=== PATIENT | female | born 1955 | race Caucasian/White ===

== ENCOUNTER 2019-07-14 12:07 | Outpatient (CLI) | payer MEDICARE, OTHER, SELFPAY ==
[2019-07-14 12:50] LABS: Alanine Aminotransferase 27 U/L (0-33); Albumin Level 4.7 g/dL (3.5-5.2); Alkaline Phosphatase 83 IU/L (35-105); Anion Gap 17.3 (5-19); Blood Urea Nitrogen 15 mg/dL (8-23); Carbon Dioxide 25 mmol/L (22-29); Chloride 102 mmol/L (98-107); Globulin 2.2 g/dL (1.3-4.6); Glomerular Filtration Rate 83.7 mL/min (90-130); Glucose 105 mg/dL (74-106); Potassium 4.3 mmol/L (3.5-5.1); Sodium 140 mmol/L (136-145); Total Bilirubin 0.3 mg/dL (0.15-1.2); Total Protein 6.9 g/dL (6.6-8.7)
[2019-07-14 13:18] LABS: Aspartate Amino Transferase 28 U/L (0-32)
--- NOTE | 2019-07-14 14:19 | ONC FU_ITS ---
Dr. De Los Santos follow up note Patient: Frieda Lockhart Unit #: [id number]: 1955 Dicatated By: Norm De Los Santos M.D.Date of Visit:Jul 14, 2019 Onc Med Follow-up/Prog Note History of Present Illness: Mrs. Frieda Lockhart, is a 64-year-old female with history of left breast cancer, as per patient initially in fall she observed mass in her left breast, at that time she decided to pursue alternative therapy, and deferred biopsy and mammogram until November 2017 when she moved to [place], [place] with her sister, and there she was evaluated by Dr. Flynn Herrmann, medical oncologist and workup done there confirmed 6 cm left breast mass with skin involvement, biopsy was done on 01/05/2018 which showed high-grade, triple negative, invasive ductal carcinoma with dermal invasion, chest x-ray showed left axillary lymphadenopathy and clinically it was concluded, T4, N2 M0 left breast carcinoma Patient was started on neoadjuvant chemotherapy with Adriamycin Cytoxan ???4 followed by weekly Taxol ???11, patient developed [id number] neuropathy so her chemotherapy concluded on 06/01/2018 and a month later on 07/05/2018 she underwent bilateral mastectomy as well as left axillary node dissection and final pathology report showed almost complete response to the chemotherapy, there was no residual disease in the breast specimen, there were only 3 malignant cells noted in one of the 5 axillary lymph nodes examined So no adjuvant chemotherapy with Xeloda was considered And follow-up every 2-3 months in first 2 years and then every 6 month from 2-5 years was planned And then patient was referred to post mastectomy radiation therapy which was started on 08/09/2018 and completed on 09/17/2018 and patient received total 5000 cGy in 25 fractions and bolus was utilized on alternative days. And also received radiation to the left axilla Now patient moved back to [facility]. Came for follow-up, denies any specific complaints except some restricted movement at left shoulder but with exercise it is improving. No fever or chills no nausea or vomiting no diarrhea constipation no new bony pains. No headaches no blurred vision or double vision. Appetite is good. Medications: Calcium 1 Capsule Oral daily, Elderberry 1 drop(s) Liquid Oral daily, Magnesium 1 Capsule Oral daily, magnolia bark 0.5 tsp Powder daily, pauD-arco 1 drop(s) Liquid daily, Vitamin A 1 Tablet Oral daily, Vitamin B Complex 1 Tablet Oral daily, Vitamin C 1 Capsule Oral daily, Vitamin D 1 Tablet Oral daily Allergies: Sulfamylon Review of Systems: Constitutional - Appetite is good and weight is stable. No fever, chills, hot flashes, or night sweats. Energy level is good, ENMT - Positive for sinus congestion/drainage. No mouth sores. No sore throat, occasional difficulty swallowing, Hematologic/Lymphatic - No abnormal bruising or bleeding, Respiratory - No shortness of breath. Slight cough. No pleuritic pain or hemoptysis, Cardiovascular - No angina pain. No palpitations, Gastrointestinal - No nausea or vomiting. No heartburn or acid reflux. Regular diarrhea, no constipation. No blood in the stool or black stools, Genitourinary (F) - No dysuria or hematuria. No urinary frequency. No urgency or incontinence, Musculoskeletal - No joint or bone pain, Neurologic - No headache or dizziness. Pt reports peripheral neuropathy in toes, Psychiatric - No anxiety or depression. No insomnia. Vital Signs: Performed on Jul 14, 2019 13:42 Height - 66.00 in Weight - 127.4 lbs (HIGH) BSA - 1.65 sq.m BMI - 20.56 Temperature - 98.2 F (LOW) Pulse - 103 /min (HIGH) Respiration - 16 /min BP - 110/61 mm(hg) O2 Sat - 99 % Pain - 2 Performance Status: 0 - Fully active, able to carry on all predisease activities without restrictions. (ECOG) Physical Examination: Respiratory - Lungs are clear to auscultation without rhonchi or wheezing, Cardiovascular - Regular rate and rhythm of heart, Extremities - no edema. Lab/Imaging: Test performed on Jan 20, 2019 15:09 Sodium 143 mmol/L Potassium 3.6 mmol/L Chloride 106 mmol/L CO2 25 mmol/L Anion Gap 15.6 BUN 15 mg/dL Creatinine 0.6 mg/dL Cr Clearance (Est) 77.80 mL/min eGFR 100.0 mL/min Glucose 123 mg/dl Calcium 9.2 mg/dL Protein, Total 7.0 g/dL Albumin 4.4 g/dL Globulin 2.6 gm/dL Bilirubin, Total 0.2 mg/dL ALT (SGPT) 22 U/L AST (SGOT) 27 U/L Alkaline Phosphatase 73 IU/L WBC 6.0 /cmm RBC 4.02 10 6/cmm HGB 12.4 g/dl HCT 36.2 % MCV 89.9 /cmm MCH 30.9 pg MCHC 34.4 g/dl RDW 14.3 % Platelet Count 219 10 3/cmm MPV 7.5 fl Neutrophils 4.3 10 3/cmm Lymphocytes 1.2 10 3/cmm Monocytes 0.4 10 3/cmm Eosinophils 0.1 10 3/cmm Basophils 0.0 10 3/cmm Neutrophil % 70.9 % Lymphocyte % 20.4 % Monocyte % 6.1 % Eosinophil % 2.0 % Basophils % 0.6 % CA 27.29 22.53 U/mL Impression: High-grade, triple negative, invasive ductal carcinoma with dermal invasion involving left breast per biopsy done on 11/05/2017, status post neoadjuvant chemotherapy with Adriamycin Cytoxan ???4 followed by weekly Taxol ???11 and chemotherapy was concluded on 06/01/2018, Followed by bilateral mastectomy with a left axillary lymph node dissection done on 07/05/2018 final pathology report showed almost complete response except only 3 malignant cell noted in one of the 5 axillary lymph nodes examined. Followed by radiation therapy to the left chest wall and axilla from 08/09/2018 through 09/17/2018 Mild peripheral neuropathy, now improving As per patient, no adjuvant treatment was offered rather follow-up every 2- 3 months in first 2 years then every 6 months from 2-5 years. Plan: Discussed with patient regarding her labs CMP is within normal limits Clinically, patient is doing well with no signs symptom suggestive of recurrence of disease. We'll continue to monitor and then she will return to clinic in 6 month with CMP. Signed By: Norm De Los Santos M.D. <<Signature on File>>
== END 2019-07-14 12:08 | disposition home or self-care (01) ==
LOC: ONCMED 12:13
PROVIDERS: Family Provider Nurse Practitioner Family; PCP Nurse Practitioner Family; Visit Provider Internal Medicine Hematology & Oncology
DX: Z08 Encounter for follow-up examination after completed treatment for malignant neoplasm (principal); Z85.3 Personal history of malignant neoplasm of breast; G62.9 Polyneuropathy, unspecified; Z17.1 Estrogen receptor negative status [ER-]; Z90.13 Acquired absence of bilateral breasts and nipples; Z92.21 Personal history of antineoplastic chemotherapy; Z92.3 Personal history of irradiation
CPT/HCPCS: 36415; 80053; G0463

== ENCOUNTER → 2019-10-18 13:00 | Outpatient (BNVA) | payer MEDICARE, OTHER, SELFPAY | PROVIDERS: Family Provider Nurse Practitioner Family; PCP Nurse Practitioner Family; Visit Provider Nurse Practitioner Family | DX: R53.82 Chronic fatigue, unspecified (principal); E55.9 Vitamin D deficiency, unspecified; H65.191 Other acute nonsuppurative otitis media, right ear | CPT/HCPCS: 80053; 82306; 85025 ==

== ENCOUNTER 2019-11-30 10:24 | Outpatient (CLI) | payer MEDICARE, OTHER, SELFPAY ==
[2019-11-30 11:40] LABS: Basophils # 0.1 10^3/uL (0.0-0.1); Basophils % 0.8 %; Eosinophils # 0.2 10^3/uL (0.0-0.8); Eosinophils % 2.6 %; Hematocrit 40.9 % (37.0-47.0); Lymphocytes # 1.3 10^3/uL (0.8-4.8); Lymphocytes % 20.5 %; Mean Corpuscular HGB Conc 31.8 g/dL (30.0-36.0); Mean Corpuscular Hemoglobin 29.5 pg (28.0-34.0); Mean Corpuscular Volume 92.7 fL (81-99); Mean Platelet Volume 9.5 fL (7.4-10.4); Monocytes # 0.5 10^3/uL (0.2-0.9); Monocytes % 6.9 %; Neutrophils # 4.5 10^3/uL (1.8-7.7); Nucleated Red Blood Cells % 0 %; Platelet Count 280 10^3/cmm (130-400); Red Blood Count 4.41 10^6/uL (4.1-5.3); Red Cell Distribution Width 12.3 % (12.1-15.1); White Blood Count 6.5 10^3/uL (4.0-10.0)
[2019-11-30 11:51] LABS: Alanine Aminotransferase 64 U/L (0-33); Albumin Level 4.8 g/dL (3.5-5.2); Alkaline Phosphatase 189 IU/L (35-105); Anion Gap 16.8 (5-19); Aspartate Amino Transferase 61 U/L (0-32); Blood Urea Nitrogen 17 mg/dL (8-23); Calcium 9.9 mg/dL (8.5-10.5); Carbon Dioxide 28 mmol/L (22-29); Chloride 97 mmol/L (98-107); Glomerular Filtration Rate 83.7 mL/min (90-130); Glucose 138 mg/dL (65-115); Osmolality Calculated 285 mOsm/kg (285-295); Potassium 3.8 mmol/L (3.5-5.1); Sodium 138 mmol/L (136-145); Total Bilirubin 0.3 mg/dL (0.15-1.2); Total Protein 7.8 g/dL (6.6-8.7)
[2019-12-01 09:28] LABS: Thyroid Stimulating Hormone 2.54 uIU/mL (0.27-4.20)
--- NOTE | 2019-12-01 12:24 | ONC FU_ITS ---
Dr. De Los Santos follow up note Patient: Frieda Lockhart Unit #: [id number]: 1955 Dicatated By: Norm De Los Santos M.D.Date of Visit:Nov 30, 2019 Onc Med Follow-up/Prog Note History of Present Illness: Mrs. Frieda Lockhart, is a 64-year-old female with history of left breast cancer, as per patient initially in fall she observed mass in her left breast, at that time she decided to pursue alternative therapy, and deferred biopsy and mammogram until November 2017 when she moved to [place], [place] with her sister, and there she was evaluated by Dr. Flynn Herrmann, medical oncologist and workup done there confirmed 6 cm left breast mass with skin involvement, biopsy was done on 01/05/2018 which showed high-grade, triple negative, invasive ductal carcinoma with dermal invasion, chest x-ray showed left axillary lymphadenopathy and clinically it was concluded, T4, N2 M0 left breast carcinoma Patient was started on neoadjuvant chemotherapy with Adriamycin Cytoxan ???4 followed by weekly Taxol ???11, patient developed [id number]-[id number] neuropathy so her chemotherapy concluded on 06/01/2018 and a month later on 07/05/2018 she underwent bilateral mastectomy as well as left axillary node dissection and final pathology report showed almost complete response to the chemotherapy, there was no residual disease in the breast specimen, there were only 3 malignant cells noted in one of the 5 axillary lymph nodes examined So no adjuvant chemotherapy with Xeloda was considered And follow-up every 2-3 months in first 2 years and then every 6 month from 2-5 years was planned And then patient was referred to post mastectomy radiation therapy which was started on 08/09/2018 and completed on 09/17/2018 and patient received total 5000 cGy in 25 fractions and bolus was utilized on alternative days. And also received radiation to the left axilla Now patient moved back to [facility]. Came for follow-up, complaining of generalized weakness and fatigue and significant weight loss because of dysphagia and now with change in voice, as per patient she has seen ENT physician recently and she was told about vocal cord paralysis could be due to rabies, as per patient in the mid September she had a episode of sinus infection for which she took oral antibiotic and felt better and during that. She had a dog bite and took tetanus shot subsequently patient start having right upper quadrant pain and underwent right upper quadrant sonogram which showed no gallbladder stones, followed by possible HIDA scan which showed some abnormality, subsequently patient underwent cholecystectomy and week later she developed right upper quadrant pain more with hiccup and deep breathing as per patient she had CT scan of her abdomen which did not show any abnormality but she continued to lose weight because of progressive dysphagia and headaches and change in voice and on November 29, 2019 she went to [facility] ER where she had CT scan of neck and upper chest, results is not available to us and also had ENT evaluation. Patient was also seen by infectious disease, as per patient she was informed she has no signs symptom suggestive of rabies. Patient denies any focal weakness, denies any jaundice, denies any new bony pains. But progressive weakness and dysphagia and not change in voice and weight loss. Medications: Calcium 1 Capsule Oral daily, Elderberry 1 drop(s) Liquid Oral daily, Magnesium 1 Capsule Oral daily, magnolia bark 0.5 tsp Powder daily, pauD-arco 1 drop(s) Liquid daily, Tylenol with Codeine #3 1 Tablet (of 300-30 mg) Oral, Vitamin A 1 Tablet Oral daily, Vitamin B Complex 1 Tablet Oral daily, Vitamin C 1 Capsule Oral daily, Vitamin D 1 Tablet Oral daily Allergies: Sulfamylon Review of Systems: Constitutional - Appetite is fair and weight is decreased. No fever, chills, hot flashes, or night sweats. Energy level is poor, ENMT - Positive for sinus congestion/drainage. No mouth sores. No sore throat, occasional difficulty swallowing. Pt reports complications with vocal cords, voice is strained and high pitched today, Hematologic/Lymphatic - No abnormal bruising or bleeding, Respiratory - No shortness of breath. Slight cough. No pleuritic pain or hemoptysis, Cardiovascular - No angina pain. No palpitations, Gastrointestinal - No nausea or vomiting. No heartburn or acid reflux. Regular diarrhea, no constipation. No blood in the stool or black stools, Genitourinary (F) - No dysuria or hematuria. No urinary frequency. No urgency or incontinence, Musculoskeletal - No joint or bone pain, Neurologic - No headache or dizziness. Pt reports peripheral neuropathy in toes, Psychiatric - No anxiety or depression. No insomnia. Vital Signs: Performed on Nov 30, 2019 11:52 Height - 66.00 in Weight - 105.0 lbs (LOW) BSA - 1.52 sq.m BMI - 16.95 (LOW) Temperature - 98.6 F Pulse - 106 /min (HIGH) Respiration - 18 /min BP - 132/66 mm(hg) O2 Sat - 98 % Pain - 5 Performance Status: 1 - No physically strenuous activity, but ambulatory and able to carry out light or sedentary work (e.g. office work, light house work). (ECOG) Physical Examination: Respiratory - Lungs are clear, Cardiovascular - Regular rate and rhythm of heart, Extremities - No visible edema, or rash. . No peripheral lymphadenopathy or organomegaly. No mouth sores no thrush Lab/Imaging: Test performed on Jul 14, 2019 12:20 Sodium 140 mmol/L Potassium 4.3 mmol/L Chloride 102 mmol/L CO2 25 mmol/L Anion Gap 17.3 BUN 15 mg/dL Creatinine 0.7 mg/dL Cr Clearance (Est) 72.12 mL/min eGFR 83.7 mL/min Glucose 105 mg/dL Calcium 10.0 mg/dL Protein, Total 6.9 g/dL Albumin 4.7 g/dL Globulin 2.2 g/dL Bilirubin, Total 0.3 mg/dL ALT (SGPT) 27 U/L AST (SGOT) 28 U/L Alkaline Phosphatase 83 IU/L Impression: High-grade, triple negative, invasive ductal carcinoma with dermal invasion involving left breast per biopsy done on 11/05/2017, status post neoadjuvant chemotherapy with Adriamycin Cytoxan ???4 followed by weekly Taxol ???11 and chemotherapy was concluded on 06/01/2018, Followed by bilateral mastectomy with a left axillary lymph node dissection done on 07/05/2018 final pathology report showed almost complete response except only 3 malignant cell noted in one of the 5 axillary lymph nodes examined. Followed by radiation therapy to the left chest wall and axilla from 08/09/2018 through 09/17/2018 Mild peripheral neuropathy, now improving As per patient, no adjuvant treatment was offered rather follow-up every 2- 3 months in first 2 years then every 6 months from 2-5 years. Plan: Discussed with patient regarding her labs from today shows white blood count 6.5 hemoglobin 13 crit 40.9 platelets 280,000 CMP within normal limit except glucose 138 and ALT 64 AST 61 alk phos 189 Clinically, patient is in vtth-[id number] distress due to progressive dysphagia and change in voice and weight loss and not knowing what is going on with her, patient has seen infectious disease regarding concern about possible rabies due to dog bite, as per patient she been informed there is no signs symptom suggestive of rabies. ENT physician has evaluated her and informed her about vocal cord paralysis, which could be due to rabies as per ENT evaluatio From oncology point of view, recurrence of breast cancer is less likely but will review medical record from [facility] and also check tumor marker CA-[id number], as patient is anxious about breast cancer recurrence. At this point we will obtain records from [facility] including CT scan of neck chest abdomen reports and review and after that we will discuss with ENT and infectious disease regarding rabies status and as patient has progressive dysphagia which could be neurological or local regional pathology, will consider referral to GI for EGD and will also check her TSH and CA-27-29 and patient will return to clinic in 2 weeks with CMP to follow abnormal LFTs. Signed By: Norm De Los Santos M.D. <<Signature on File>>
== END 2019-11-30 10:25 | disposition home or self-care (01) ==
PROVIDERS: PCP Family Medicine; Visit Provider Internal Medicine Hematology & Oncology
DX: C50.412 Malignant neoplasm of upper-outer quadrant of left female breast (principal); Z17.1 Estrogen receptor negative status [ER-]; E03.9 Hypothyroidism, unspecified; R53.83 Other fatigue; G62.9 Polyneuropathy, unspecified; H65.191 Other acute nonsuppurative otitis media, right ear; H65.01 Acute serous otitis media, right ear; R63.4 Abnormal weight loss; R13.19 Other dysphagia; Z92.3 Personal history of irradiation; Z90.13 Acquired absence of bilateral breasts and nipples; Z92.21 Personal history of antineoplastic chemotherapy
CPT/HCPCS: 36415; 80053; 84443; 85025; 99214

== ENCOUNTER 2019-12-14 09:25 | Outpatient (CLI) | payer MEDICARE, OTHER, SELFPAY ==
--- NOTE | 2019-12-14 17:35 | ONC FU_ITS ---
Dr. De Los Santos follow up note Patient: Frieda Lockhart Unit #: [id number]: 1955 Dicatated By: Norm De Los Santos M.D.Date of Visit:Dec 14, 2019 Onc Med Follow-up/Prog Note History of Present Illness: Mrs. Frieda Lockhart, is a 64-year-old female with history of left breast cancer, as per patient initially in fall she observed mass in her left breast, at that time she decided to pursue alternative therapy, and deferred biopsy and mammogram until November 2017 when she moved to [place], [place] with her sister, and there she was evaluated by Dr. Flynn Herrmann, medical oncologist and workup done there confirmed 6 cm left breast mass with skin involvement, biopsy was done on 01/05/2018 which showed high-grade, triple negative, invasive ductal carcinoma with dermal invasion, chest x-ray showed left axillary lymphadenopathy and clinically it was concluded, T4, N2 M0 left breast carcinoma Patient was started on neoadjuvant chemotherapy with Adriamycin Cytoxan ???4 followed by weekly Taxol ???11, patient developed uycr-aa-ryopzwzi neuropathy so her chemotherapy concluded on 06/01/2018 and a month later on 07/05/2018 she underwent bilateral mastectomy as well as left axillary node dissection and final pathology report showed almost complete response to the chemotherapy, there was no residual disease in the breast specimen, there were only 3 malignant cells noted in one of the 5 axillary lymph nodes examined So no adjuvant chemotherapy with Xeloda was considered And follow-up every 2-3 months in first 2 years and then every 6 month from 2-5 years was planned And then patient was referred to post mastectomy radiation therapy which was started on 08/09/2018 and completed on 09/17/2018 and patient received total 5000 cGy in 25 fractions and bolus was utilized on alternative days. And also received radiation to the left axilla . , complaining of generalized weakness and fatigue and significant weight loss because of dysphagia and now with change in voice, as per patient she has seen ENT physician recently and she was told about vocal cord paralysis could be due to rabies, as per patient in the mid September she had a episode of sinus infection for which she took oral antibiotic and felt better and during that. She had a dog bite and took tetanus shot subsequently patient start having right upper quadrant pain and underwent right upper quadrant sonogram which showed no gallbladder stones, followed by possible HIDA scan which showed some abnormality, subsequently patient underwent cholecystectomy and week later she developed right upper quadrant pain more with hiccup and deep breathing as per patient she had CT scan of her abdomen which did not show any abnormality but she continued to lose weight because of progressive dysphagia and headaches and change in voice and on November 29, 2019 she went to [facility] ER where she had CT scan of neck and upper chest, results is not available to us and also had ENT evaluation. Patient was also seen by infectious disease, as per patient she was informed she has no signs symptom suggestive of rabies. Patient denies any focal weakness, denies any jaundice, denies any new bony pains. But progressive weakness and dysphagia and not change in voice and weight loss. Evaluated via telemedicine, patient is comfortable under hospice care now, denies any specific complaint right abdomen/lower chest wall pain is under control with current pain medication, no nausea or vomiting, no fever or chills, appears somewhat drowsy, surrounded by family members including . Patient denies any fever or chills, denies any diarrhea or constipation, or shortness of breath, patient appears comfortable. Medications: Calcium 1 Capsule Oral daily, Elderberry 1 drop(s) Liquid Oral daily, Magnesium 1 Capsule Oral daily, magnolia bark 0.5 tsp Powder daily, pauD-arco 1 drop(s) Liquid daily, Tylenol with Codeine #3 1 Tablet (of 300-30 mg) Oral, Vitamin A 1 Tablet Oral daily, Vitamin B Complex 1 Tablet Oral daily, Vitamin C 1 Capsule Oral daily, Vitamin D 1 Tablet Oral daily Allergies: Sulfamylon Review of Systems: Review of Systems is not available for this patient. Vital Signs: Vitals are not available for this patient. Performance Status: 3 - Capable of only limited self-care, confined to bed or chair more than 50% of waking hours. (ECOG) Physical Examination: Respiratory - Patient denies any shortness of breath or wheezing, Cardiovascular - Patient denies any palpitation or tachycardia, Gastrointestinal - Patient denies any abdominal pain,, Extremities - Patient denies any edema. Lab/Imaging: Test performed on Nov 30, 2019 11:20 Sodium 138 mmol/L TSH 2.54 uIU/mL Potassium 3.8 mmol/L Chloride 97 mmol/L CO2 28 mmol/L Anion Gap 16.8 BUN 17 mg/dL Creatinine 0.7 mg/dL Cr Clearance (Est) 59.44 mL/min eGFR 83.7 mL/min Glucose 138 mg/dL Calcium 9.9 mg/dL Protein, Total 7.8 g/dL Albumin 4.8 g/dL Globulin 3.0 g/dL Bilirubin, Total 0.3 mg/dL ALT (SGPT) 64 U/L AST (SGOT) 61 U/L Alkaline Phosphatase 189 IU/L WBC 6.5 10 3/uL RBC 4.41 10 6/uL HGB 13.0 g/dL HCT 40.9 % MCV 92.7 fL MCH 29.5 pg MCHC 31.8 g/dL RDW 12.3 % Platelet Count 280 10 3/cmm MPV 9.5 fL Neutrophils 4.5 10 3/uL Lymphocytes 1.3 10 3/uL Monocytes 0.5 10 3/uL Eosinophils 0.2 10 3/uL Basophils 0.1 10 3/uL Neutrophil % 69.0 % Lymphocyte % 20.5 % Monocyte % 6.9 % Eosinophil % 2.6 % Basophils % 0.8 % NRBC % 0 % Impression: Newly diagnosed extensive hepatic metastasis, underwent CT-guided liver biopsy on December 05, 2019, final pathology showed poorly differentiated carcinoma immunohistochemistry stains are pending, recurrent breast cancer versus second primary CT scan of abdomen pelvis showed extensive liver mets and possible duodenal mass or abscess. Esophagram showed narrowing with distal esophagus with stricture versus mass. High-grade, triple negative, invasive ductal carcinoma with dermal invasion involving left breast per biopsy done on 11/05/2017, status post neoadjuvant chemotherapy with Adriamycin Cytoxan ???4 followed by weekly Taxol ???11 and chemotherapy was concluded on 06/01/2018, Followed by bilateral mastectomy with a left axillary lymph node dissection done on 07/05/2018 final pathology report showed almost complete response except only 3 malignant cell noted in one of the 5 axillary lymph nodes examined. Followed by radiation therapy to the left chest wall and axilla from 08/09/2018 through 09/17/2018 Mild peripheral neuropathy, now improving As per patient, no adjuvant treatment was offered rather follow-up every 2- 3 months in first 2 years then every 6 months from 2-5 years. Plan: Discussed with patient and her family including her via telemedicine regarding newly found liver mets , recurrent breast cancer versus second primary, confirmation is pending but, because of her poor performance status and extensive weight loss, patient opted for hospice care, she is under hospice care now and peaceful and comfortable, but family wanted to know if something else can be done., Family, was advised that first we need to confirm whether she has recurrence of breast cancer, patient has history of triple negative disease or she has second primary as CT scan of abdomen showed duodenal mass and esophagogram showed external compression in distal esophagus. If family And the patient is willing, then we can discuss with pathology regarding primary source of liver mets,as her ultrasound Abdomen done in October 2019, prior to cholecystectomy, showed no liver abnormality, it means she has a very aggressive disease. But considering patient's poor performance status and her inability to travel and her wish to consider hospice and now peaceful and comfortable under hospice care, she was advised to continue with hospice if her overall condition improves and later on she decided to pursue other options including palliative therapy then we can see her in office and and plan. Patient and family agreed and will stay under hospice care. Signed By: Norm De Los Santos M.D. <<Signature on File>>
== END 2019-12-14 09:26 | disposition home or self-care (01) ==
LOC: ONCMED 09:37
PROVIDERS: PCP Family Medicine; Visit Provider Internal Medicine Hematology & Oncology
DX: C78.7 Secondary malignant neoplasm of liver and intrahepatic bile duct (principal); Z85.3 Personal history of malignant neoplasm of breast; R19.09 Other intra-abdominal and pelvic swelling, mass and lump; R63.4 Abnormal weight loss; R93.3 Abnormal findings on diagnostic imaging of other parts of digestive tract; G62.0 Drug-induced polyneuropathy; T45.1X5D Adverse effect of antineoplastic and immunosuppressive drugs, subsequent encounter; Z90.13 Acquired absence of bilateral breasts and nipples; Z92.21 Personal history of antineoplastic chemotherapy; Z92.3 Personal history of irradiation
CPT/HCPCS: 99214